=== PATIENT | female | born 1990 ===

== ENCOUNTER 2018-07-14 00:50 | Emergency (ER) | payer OTHER, SELFPAY ==
--- NOTE | 2018-07-14 00:54 | ED.ABDPAIN ---
HPI - Abdominal Pain General Chief Complaint: Abdominal Pain Stated Complaint: BURNING PAIN IN UPPER ABDOMEN Time Seen by Provider: 07/14/18 00:54 Source: patient Mode of arrival: ambulatory Limitations: no limitations History of Present Illness HPI narrative: Patient is an otherwise healthy 28-year-old female here for evaluation of epigastric abdominal pain. She states that it started approximately 1 week ago. Does not seem to be associated with eating her palpation her breathing or movement. Has tried some Pepto-Bismol and Tums at home without much improvement. No urinary symptoms. States that her bowels have changed somewhat the cannot be specific about this. No fevers. No vomiting. Has had some nausea. Related Data Previous Rx's Medication Instructions Recorded ranitidine HCl [Zantac] 150 mg PO BID #60 tab 07/14/18 Review of Systems Constitutional Denies fever(s) and Denies headache(s) ENT Ears, Nose, Mouth, and Throat: Denies headache(s) Cardiovascular Denies chest pain and Denies dyspnea Respiratory Denies dyspnea Gastrointestinal Gastrointestinal: Reports abdominal pain, Reports nausea and Denies vomiting Genitourinary Denies dysuria Musculoskeletal Denies myalgias and Denies arthralgias Integumentary/Breasts Denies rash Neurologic Denies headache(s) PFSH Medical History Healthy adult (Acute) Surgical History No pertinent past surgical history (Acute) Social History lives independently: Yes Exam Initial Vital Signs Initial Vital Signs: Vital Signs Temperature 97 F L 07/14/18 00:56 Pulse Rate 60 07/14/18 00:56 Respiratory Rate 18 07/14/18 00:56 Blood Pressure 105/69 07/14/18 00:56 Pulse Oximetry 100 07/14/18 00:56 Const General: cooperative, healthy appearing, comfortable, well developed, well groomed and No acute distress Orientation: alert, awake and oriented x3 Resp Effort & Inspection: normal respiratory effort Auscultation: clear to auscultation bilaterally Cardio Rate: regular rate Rhythm: regular rhythm GI Inspection: non-distended Palpation: soft, No firm, No guarding, No rigid and tender (Epigastric region) Skin Lesions: no lesions Rashes: no rashes Neuro General: alert, awake and oriented x3 Extrem General: normal to inspection and capillary refill normal Psych Appearance: grossly normal and well kempt Course Orders Ordered: ED Orders 07/14/18 01:12 Complete Blood Count AUTO DIFF Stat Comprehensive Metabolic Panel Stat Lipase Stat Discontinued Medications Al Hydrox/Mg Hydrox/Simethicone 20 ml/ Lidocaine HCl 15 ml 0 ml PO NOW ONE Stop: 07/14/18 01:03 Last Admin: 07/14/18 01:09 Dose: 35 ml Vital Signs - 8 hr 07/14/18 00:56 07/14/18 01:19 Temperature 97 F L 97 F L Pulse Rate 60 60 Respiratory Rate 18 18 Blood Pressure 105/69 105/69 Pulse Oximetry 100 100 MDM - Abdominal Pain Lab Data Attestation: I reviewed the patient's lab results. Result diagrams: 07/14/18 01:12 07/14/18 01:12 Lab Results 07/14/18 07/14/18 Range/Units 01:12 01:12 WBC 6.7 (4.5-11.0) X10^3/uL RBC 4.52 (4.0-5.2) X10^6/uL Hgb 13.3 (12.0-16.0) g/dL Hct 39.9 (36-46) % MCV 88.3 (80-100) fL MCH 29.3 (26-34) PG MCHC 33.2 (30-36) % RDW 13.5 (11.6-14.8) % Plt Count 225 (150-400) X10^3/uL Neut % (Auto) 36.8 L (50-75) % Lymph % (Auto) 47.3 H (25-40) % [place] % (Auto) 11.8 (3-14) % Eos % (Auto) 2.8 (2-4) % Baso % (Auto) 1.3 (0-2) % Neut # (Auto) 2500 L (2076-2691) /uL Sodium 140 (137-145) mmol/L Potassium 4.1 (3.4-5.1) mmol/L Chloride 101 (98-107) mmol/L Carbon Dioxide 30 (22-32) mmol/L BUN 14 (7-17) mg/dL Creatinine 0.70 (0.52-1.04) mg/dL Estimated GFR > 60.0 (>60) mL/min BUN/Creatinine Ratio 20.0 (6-22) Glucose 89 (70-100) mg/dL Calcium 9.4 (8.4-10.2) mg/dL Total Bilirubin 0.6 (0.2-1.3) mg/dL AST 19 (14-36) IU/L ALT 18 (9-52) IU/L Alkaline Phosphatase 43 (38-126) U/L Total Protein 7.0 (6.3-8.2) g/dL Albumin 4.0 (3.5-5.0) g/dL Globulin 3.0 (1.7-4.1) g/dL Albumin/Globulin Ratio 1.3 (1.0-2.8) Lipase 56 (23-300) U/L MDM Narrative Medical decision making narrative: Patient reports improvement in symptoms after the GI cocktail. Has a nonsurgical abdomen. LFTs and lipase unremarkable. Low concern for gallbladder pathology and pancreatitis. Will send home with a prescription for Zantac. She was given return precautions. She expressed understanding and agreement with plan. Discharge Plan Departure Patient Disposition: Home Clinical Impression: Abdominal pain Instructions: DI for Gastric Ulcer Activity Restrictions/Additional Instructions: I do recommend that for the next 7-10 days you take the Zantac 2 times a day. After that you can take it as needed. Call your primary care doctor for follow-up. Return to the emergency department for any new or worsening symptoms Prescriptions: New ranitidine HCl [Zantac] 150 mg tablet 150 mg PO BID Qty: 60 RF: 0
[2018-07-14 00:56] VITALS: BP 105/69; PULSE 60; RESP 18; TEMP 36.1; O2SAT 100; BMI 21.7
[2018-07-14] MEDS: MAG HYDROX/ALUMINUM/SIMETH SUS 20 ML, LIDOCAINE VISCOUS 2% 15 ML PO (01:09)
[2018-07-14 01:18] LABS: Add Manual Diff / Slide Review NO; Basophils Percent Auto 1.3 % (0-2); Eosinophils Percent Auto 2.8 % (2-4); Hematocrit 39.9 % (36-46); Hemoglobin 13.3 g/dL (12.0-16.0); Lymphocytes Percent Auto 47.3 % (25-40); Mean Corpuscular HGB Conc 33.2 % (30-36); Mean Corpuscular Hemoglobin 29.3 PG (26-34); Mean Corpuscular Volume 88.3 fL (80-100); Monocytes Percent Auto 11.8 % (3-14); Neutrophils Absolute Auto 2500 /uL (3000-5900); Neutrophils Percent Auto 36.8 % (50-75); Platelet Count 225 X10^3/uL (150-400); Red Blood Cell Count 4.52 X10^6/uL (4.0-5.2); Red Cell Distribution Width 13.5 % (11.6-14.8); White Blood Cell Count 6.7 X10^3/uL (4.5-11.0)
[2018-07-14 01:19] VITALS: BP 105/69; PULSE 60; RESP 18; TEMP 36.1; O2SAT 100; BMI 21.7
[2018-07-14 01:28] LABS: Alanine Aminotransferase 18 IU/L (9-52); Albumin Globulin Ratio 1.3 (1.0-2.8); Alkaline Phosphatase 43 U/L (38-126); Aspartate Aminotransferase 19 IU/L (14-36); Bilirubin Total 0.6 mg/dL (0.2-1.3); Blood Urea Nitrogen 14 mg/dL (7-17); Calcium 9.4 mg/dL (8.4-10.2); Carbon Dioxide 30 mmol/L (22-32); Chloride 101 mmol/L (98-107); Estimated Glomerular Filt Rate > 60.0 mL/min (>60); Glucose 89 mg/dL (70-100); HEMOLYSIS < 15 (0-50); Lipase 56 U/L (23-300); Potassium 4.1 mmol/L (3.4-5.1); Sodium 140 mmol/L (137-145)
[2018-07-14 01:44] VITALS: BP 91/60; PULSE 66; RESP 12; O2SAT 100
== END 2018-07-14 01:48 | disposition home or self-care (01) ==
PROVIDERS: Emergency Provider Emergency Medicine
DX: R10.9 Unspecified abdominal pain (principal)
CPT/HCPCS: 36415; 80053; 83690; 85025; 99282; 99283